=== PATIENT | male | born 1960 | race Caucasian/White ===

== ENCOUNTER 2016-06-29 11:18 | Emergency (ER) | payer SELFPAY ==
[2016-06-29 12:03] LABS: BASO % 0.3 % (0-6); EOS % 2.6 % (0-6); GRAN % 51.8 % (47-80); HEMATOCRIT 41.3 % (42.0-52.0); HEMOGLOBIN 13.7 gm/dl (14.0-18.0); LYMPH % 38.9 % (16-45); MEAN CELL VOLUME 96.3 fl (81-97); MEAN CORPUSCULAR HEMOGLOBIN 31.9 pg (27-33); MEAN CORPUSCULAR HGB CONC 33.2 g/dl (32-36); MEAN PLATELET VOLUME 9.6 fl (7.4-10.4); MONO % 6.4 % (0-9); PLATELET COUNT 302 K/uL (130-400); RED BLOOD COUNT 4.29 M/uL (4.40-5.70); RED CELL DISTRIBUTION WIDTH 12.3 % (11.5-14.5); WHITE BLOOD COUNT W/O DIFF 9.1 K/uL (4.2-12.2)
[2016-06-29 12:15] LABS: ALB/GLOB RATIO 1.4 (1.1-1.8); ALBUMIN 4.7 gm/dL (3.5-5.0); ALKALINE PHOSPHATASE 91 U/L (38-126); ALT/SGPT 44 U/L (21-72); ANION GAP 14.2 (7-16); AST/SGOT 36 U/L (17-59); BILIRUBIN,TOTAL 0.35 mg/dL (0.2-1.3); BLOOD UREA NITROGEN 15 mg/dL (9-20); CARBON DIOXIDE 26.8 mmol/L (22-30); CREATININE 0.7 mg/dL (0.66-1.25); EST GLOMERULAR FILTRATION RATE > 60 ml/min; GLUCOSE,RANDOM 105 mg/dL (70-110)
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
== END 2016-06-29 13:49 | disposition home or self-care (01) ==
LOC: ER 11:18
DX: S16.1XXA Strain of muscle, fascia and tendon at neck level, initial encounter (principal); S32.019A Unspecified fracture of first lumbar vertebra, initial encounter for closed fracture; S09.90XA Unspecified injury of head, initial encounter; V43.54XA Car driver injured in collision with van in traffic accident, initial encounter; Y92.410 Unspecified street and highway as the place of occurrence of the external cause
CPT/HCPCS: 70450; 71020; 72100; 72125; 80053; 85025; 99283; 99284

== ENCOUNTER 2018-01-25 08:32 | Day surgery (SDC) | payer MEDICAID ==
[2018-01-25] MEDS ORDERED: LIDOCAINE 2% MDV (20MG/ML) 20ML VIAL IV ONE (08:33)
[2018-01-25] MEDS ORDERED: PROPOFOL 10 MG/ML VIAL IV ONE (08:33)
[2018-01-25] MEDS ORDERED: MIDAZOLAM HCL 2MG/2ML VIAL IV ONE (08:33)
--- NOTE | 2018-01-27 17:40 | Operative Note ---
DATE OF SURGERY: 01/25/2018 OPERATION: COLONOSCOPY to the cecum with cold snare polypectomy x3. INDICATION: Prior colonoscopy completed 3 years ago with removal of at least 3 adenomatous polyps by my associate. The patient returns at this time for surveillance examination. He denies current GI issues. ANESTHESIA: Intravenous sedation was administered by the department of anesthesiology and included Diprivan titrated to effect. PROCEDURE: Following informed consent from this alert individual including a discussion of the risks and benefits of the procedure and an opportunity for the patient to ask questions, the patient was in the left lateral decubitus position. A digital rectal examination was performed. No abnormalities were noted. Following this, the Olympus [id number] video colonoscope was inserted into the rectum without resistance. The rectal mucosa had a normal appearance with normal folds and distensibility. The colonoscope was advanced up through the bowel to the level of the cecum without much difficulty. Throughout the bowel the mucosa appeared normal, the folds were normal, and the bowel was fairly well distensible. The cecum was defined by noting the appendiceal orifice and ileocecal valve. From the base of the cecum, the colonoscope was then withdrawn. The colon preparation was good. There were 2 polyps noted in the transverse colon measuring 5 and 6 mm in size. Each was removed with cold snare polypectomy and suctioned through the colonoscope into a collection trap. There was a 3rd polyp measuring 4 mm in size noted in the descending colon likewise removed with cold snare polypectomy and recovered in a specimen trap. There were a few small diverticula noted in the sigmoid region. Retroflexion in the rectum did reveal small internal hemorrhoids. No other changes were noted. The endoscope was straightened and removed. The patient tolerated the procedure well and was returned to the recovery area in stable condition. IMPRESSION: 1. Three colon polyps removed as described above with 2 from the transverse colon and 1 from the descending colon, all removed with cold snare polypectomy. 2. Mild diverticulosis in the sigmoid colon. 3. Small internal hemorrhoids. RECOMMENDATIONS: Further recommendations will be forthcoming pending results of pathology obtained today. The patient will be following up with nurse practitioner Mala Mitchell as well. As always, thank you for allowing me to participate in the care of your patient. CC: OK Lopes
== END 2018-01-25 11:40 | disposition home or self-care (01) ==
LOC: HOP 08:32
PROVIDERS: ATTEND Internal Medicine Gastroenterology
DX: Z12.11 Encounter for screening for malignant neoplasm of colon (principal); Z86.010 Personal history of colon polyps; D12.4 Benign neoplasm of descending colon; D12.3 Benign neoplasm of transverse colon; K57.30 Diverticulosis of large intestine without perforation or abscess without bleeding; K64.8 Other hemorrhoids; Z79.899 Other long term (current) drug therapy; Z51.81 Encounter for therapeutic drug level monitoring; Z00.00 Encounter for general adult medical examination without abnormal findings; F32.9 Major depressive disorder, single episode, unspecified
CPT/HCPCS: 80053; 80061; 83036; 84443; 85025

== ENCOUNTER 2018-10-20 12:24 | Emergency (ER) | payer MEDICAID ==
--- NOTE | 2018-10-20 16:03 | Emergency Department Record ---
History of Present Illness - General Chief complaint: Extremity Problem Stated complaint: SMASHED FINGER Time Seen by Provider: 10/20/18 15:58 Source: Patient, RN notes reviewed Mode of Arrival: Ambulatory - History of Present Illness Initial comments: slammed the left middle finger in a door with his dog closing the door. nail partailly avulsed. tetnus shot 3 years ago. Onset/Timin -: Hour(s) Location: Left, Hand History of Same: No Severity scale (1-10): 8 Quality: Sharp Consistency: Constant Worsens with: Nothing Associated Symptoms: Denies other symptoms - Related Data Previous Rx's Medication Instructions Recorded Hydrocodone/Acetaminophen [[place] 1 tab PO Q6H PRN #112 tablet 11/14/14 10mg/325mg] Gabapentin [Neurontin] 600 mg PO TID #90 tab 01/10/15 Cephalexin [Keflex] 500 mg PO QID #40 cap 10/20/18 Allergies Allergy/AdvReac Type Severity Reaction Status Date / Time No Known Allergies Allergy PT UNSURE Unverified 10/20/18 15:00 OF REACTION Travel Screening - Travel/Exposure Within Last 30 Days Have you traveled within the last 30 days?: No - Travel/Exposure Within Last Year Have you traveled outside the [place] in the last year?: No - Additonal Travel Details Have you been exposed to anyone with a communicable illness?: No - Travel Symptoms Symptom Screening: None Review of Systems Reviewed: No additional complaints except as noted below Constitutional: Reports: As per HPI. Denies: Chills, Fever, Malaise, Night sweats, Weakness, Weight change Eyes: Reports: As per HPI. Denies: Eye discharge, Eye pain, Photophobia, Vision change ENT: Reports: As per HPI. Denies: Congestion, Dental pain, Ear pain, Epistaxis, Hearing loss, Throat pain Respiratory: Reports: As per HPI. Denies: Cough, Dyspnea, Hemoptysis, Stridor, Wheezes Cardiovascular: Reports: As per HPI. Denies: Arrhythmia, Chest pain, Dyspnea on exertion, Edema, Murmurs, Orthopnea, Palpitations, Paroxysmal nocturnal dyspnea, Rheumatic Fever, Syncope Endocrine: Reports: As per HPI. Denies: Fatigue, Heat or cold intolerance, Polydipsia, Polyuria Gastrointestinal: Reports: As per HPI. Denies: Abdominal pain, Constipation, Diarrhea, Hematemesis, Hematochezia, Melena, Nausea, Vomiting Genitourinary: Reports: As per HPI. Denies: Dysuria, Frequency, Hematuria, Incontinence, Retention, Testicular pain, Testicular mass, Urgency Musculoskeletal: Reports: As per HPI. Denies: Arthralgia, Back pain, Gout, Joint swelling, Myalgia, Neck pain Skin: Reports: As per HPI. Denies: Bruising, Change in color, Change in hair/nails, Lesions, Pruritus, Rash Neurological: Reports: As per HPI. Denies: Abnormal gait, Confusion, Headache, Numbness, Paresthesias, Seizure, Tingling, Tremors, Vertigo, Weakness Psychiatric: Reports: As per HPI. Denies: Anxiety, Auditory hallucinations, Depression, Homicidal thoughts, Suicidal thoughts, Visual hallucinations Hematological/Lymphatic: Reports: As per HPI. Denies: Anemia, Blood Clots, Easy bleeding, Easy bruising, Swollen glands Past Medical History - SOCIAL HISTORY Smoking Status: Current every day smoker Alcohol Use: None Drug Use: Heavy Drug Use Detail:: Marijuana - RESPIRATORY Hx Respiratory Disorders: No - CARDIOVASCULAR Hx Cardio Disorders: Yes Comment:: slow mobility r/t chronic pain - NEURO Hx Neuro Disorders: No Hx Headaches: Yes Hx Neuropathy: Yes (upper ext) - GI Hx GI Disorders: Yes Hx Abdominal Pain: Yes Hx Reflux: Yes Hx Nausea/Vomiting: Yes - Hx Genitourinary Disorders: No - ENDOCRINE Hx Endocrine Disorders: No - MUSCULOSKELETAL Hx Musculoskeletal Disorders: Yes Hx Arthritis: Yes Hx Back Injury: Yes (work related injury) - PSYCH Hx Psych Problems: Yes Hx Anxiety: Yes Hx Depression: Yes - HEMATOLOGY/ONCOLOGY Hx Hematology/Oncology Disorders: Yes Hx Cancer: Yes (bottom lip) Hx Chemotherapy: No Hx Radiation Therapy: No Family Medical History Any Significant Family History?: Yes Hx Cancer: Father, Mother, Grandparents *Cancer Comment: lung, breast Hx Diabetes: Mother Hx Heart Disease: Father, Mother, Grandparents Hx HTN: Father, Mother, Brother/Sister, Grandparents Hx Resp Disorders: Mother Hx Stroke: Mother Physical Exam - General General Appearance: Alert, Oriented x3, Cooperative, No acute distress - Head Head exam: Normal inspection - Eye Eye exam: Normal appearance, PERRL Pupils: Normal accommodation - ENT ENT exam: Normal exam, Mucous membranes moist, Normal external ear exam, Normal orophraynx, TM's normal bilaterally Ear exam: Normal external inspection. negative: External canal tenderness Nasal Exam: Normal inspection. negative: Discharge, Sinus tenderness Mouth exam: Normal external inspection, Tongue normal Teeth exam: Normal inspection. negative: Dental caries Throat exam: Normal inspection. negative: Tonsillar erythema, Tonsillar exudate - Neck Neck exam: Normal inspection, Full ROM. negative: Tenderness - Respiratory Respiratory exam: Normal lung sounds bilaterally. negative: Respiratory distress - Cardiovascular Cardiovascular Exam: Regular rate, Normal rhythm, Normal heart sounds - GI/Abdominal GI/Abdominal exam: Soft, Normal bowel sounds. negative: Tenderness - Rectal Rectal exam: Deferred - exam: Deferred - Extremities Extremities exam: Normal inspection, Full ROM, Normal capillary refill. negative: Tenderness - Back Back exam: Reports: Normal inspection, Full ROM. Denies: Muscle spasm, Rash noted, Tenderness - Neurological Neurological exam: Alert, Normal gait, Oriented X3, Reflexes normal - Psychiatric Psychiatric exam: Normal affect, Normal mood - Skin Skin exam: Dry, Intact, Normal color, Warm Course Vital Signs 10/20/18 15:02 Temperature 97.8 F Pulse Rate 57 L Respiratory 20 Rate Blood Pressure 162/90 Pulse Ox 99 - Reevaluation(s) Reevaluation #1: cleaned wound and 1 % lidocaine digital block removed rest of nail and nailbed laceration 3 cm repaired with three 5.0 sutures. henry fracture 10/20/18 16:03 10/20/18 16:49 Medical Decision Making - Data Complexity MDM Data: X-Ray Ordered and/or Reviewed ([facility], [place] fracture) Disposition Clinical Impression: Closed fracture of tuft of distal phalanx of finger Nailbed laceration, finger Qualifiers: Encounter type: initial encounter Qualified Code(s): S61.319A - Laceration without foreign body of unspecified finger with damage to nail, initial encounter Disposition: Home, Self-Care Condition: (1) Good Instructions: Laceration (ED), Finger Fracture (ED) Additional Instructions: follow up with dR Reyna for a wound check in 2-5 days and sutures out in 9- 12 days and further care of the henry fracture. Prescriptions: Cephalexin [Keflex] 500 mg PO QID #40 cap Forms: Patient Portal Access Time of Disposition: 17:01 Quality - Quality Measures Quality Measures: N/A - Blood Pressure Screening Does Patient Have Any of the Following: No Blood Pressure Classification: Hypertensive Reading Systolic Measurement: 162 Diastolic Measurement: 90 Screening for High Blood Pressure: < Pre-Hypertensive BP, F/U Documented > [[id number]] Pre-Hypertensive Follow-up Interventions: Referral to alternative/primary care provider.
--- NOTE | 2018-10-22 08:31 | RADIOLOGY REPORT ---
EXAM: LEFT THIRD DIGIT HISTORY: INJURY TO THIRD DIGIT. TECHNIQUE: Three views of the left third digit were obtained. Comparison: None. Encounter: Initial. FINDINGS: There is a transverse fracture of the tuft of the third distal phalanx with approximately 1 mm of distraction of the fracture fragments. There is surrounding soft tissue swelling as well as lucency at the level of the nail bed extending to the fracture site. Open fracture is considered. No other fracture is seen nor is there dislocation. Mild marginal spurring of the visualized interphalangeal joints suggested. IMPRESSION: TRANSVERSE FRACTURE OF THE TUFT OF THE THIRD DISTAL PHALANX WITH MINOR DISTRACTION OF THE FRACTURE FRAGMENTS. THERE IS ASSOCIATED SOFT TISSUE SWELLING AND SOFT TISSUE LUCENCY WITH OPEN FRACTURE NOT EXCLUDED. JOB NUMBER: [id number] [facility]
== END 2018-10-20 17:15 | disposition home or self-care (01) ==
LOC: ER 12:24
DX: S61.313A Laceration without foreign body of left middle finger with damage to nail, initial encounter (principal); S62.663A Nondisplaced fracture of distal phalanx of left middle finger, initial encounter for closed fracture; W22.8XXA Striking against or struck by other objects, initial encounter; F17.210 Nicotine dependence, cigarettes, uncomplicated
CPT/HCPCS: 11760; 73140; 99283; 99284

== ENCOUNTER 2018-10-31 10:56 | Emergency (ER) | payer MEDICAID ==
--- NOTE | 2018-10-31 11:13 | Emergency Department Record ---
History of Present Illness - General Chief Complaint: Wound, check Stated Complaint: REMOVE STITCHES Time Seen by Provider: 10/31/18 10:56 Source: Patient Mode of arrival: Ambulatory Limitations: No limitations - History of Present Illness Complaint: Suture/staple removal -: Days(s) Returns Today for: Staple/stitch removal Symptoms Since Prior Visit: No new symptoms Associated Symptoms: None - Related Data Previous Rx's Medication Instructions Recorded Hydrocodone/Acetaminophen [[place] 1 tab PO Q6H PRN #112 tablet 11/14/14 10mg/325mg] Gabapentin [Neurontin] 600 mg PO TID #90 tab 01/10/15 Cephalexin [Keflex] 500 mg PO QID #40 cap 10/20/18 Allergies Allergy/AdvReac Type Severity Reaction Status Date / Time No Known Allergies Allergy PT UNSURE Unverified 10/31/18 11:11 OF REACTION Travel Screening - Travel/Exposure Within Last 30 Days Have you traveled within the last 30 days?: No - Travel/Exposure Within Last Year Have you traveled outside the [place] in the last year?: No - Additonal Travel Details Have you been exposed to anyone with a communicable illness?: No - Travel Symptoms Symptom Screening: None Past Medical History - SOCIAL HISTORY Smoking Status: Current every day smoker Alcohol Use: None Drug Use: Occasional, Heavy Drug Use Detail:: Marijuana - RESPIRATORY Hx Respiratory Disorders: No - CARDIOVASCULAR Hx Cardio Disorders: Yes Comment:: slow mobility r/t chronic pain - NEURO Hx Neuro Disorders: No Hx Headaches: Yes Hx Neuropathy: Yes (upper ext) - GI Hx GI Disorders: Yes Hx Abdominal Pain: Yes Hx Reflux: Yes Hx Nausea/Vomiting: Yes - Hx Genitourinary Disorders: No - ENDOCRINE Hx Endocrine Disorders: No - MUSCULOSKELETAL Hx Musculoskeletal Disorders: Yes Hx Arthritis: Yes Hx Back Injury: Yes (work related injury) - PSYCH Hx Psych Problems: Yes Hx Anxiety: Yes Hx Depression: Yes - HEMATOLOGY/ONCOLOGY Hx Hematology/Oncology Disorders: Yes Hx Cancer: Yes (bottom lip) Hx Chemotherapy: No Hx Radiation Therapy: No Family Medical History Any Significant Family History?: No Hx Cancer: Father, Mother, Grandparents *Cancer Comment: lung, breast Hx Diabetes: Mother Hx Heart Disease: Father, Mother, Grandparents Hx HTN: Father, Mother, Brother/Sister, Grandparents Hx Resp Disorders: Mother Hx Stroke: Mother Physical Exam - General General Appearance: Alert, Cooperative, No acute distress - Extremities Extremities exam: negative: Normal inspection (The nailbed lac is healing well. Only 2 vicryl sutures are visualized and were removed. There were no complications.) Course Vital Signs 10/31/18 11:07 Temperature 98 F Pulse Rate 67 Respiratory 16 Rate Blood Pressure 153/87 Pulse Ox 98 Disposition Disposition: Discharge Clinical Impression: Encounter for removal of sutures Disposition: Home, Self-Care Condition: (2) Stable Instructions: Stitches Removal (ED) Additional Instructions: Keep antibiotic ointment on with a bandaid during the day. Return to the ER for any problems. Forms: Patient Portal Access Time of Disposition: 11:13 Quality - Quality Measures Quality Measures: N/A - Blood Pressure Screening View Details: Yes Does Patient Have Any of the Following: No Blood Pressure Classification: Pre-Hypertensive BP Reading Systolic Measurement: 153 Diastolic Measurement: 87 Screening for High Blood Pressure: < Pre-Hypertensive BP, F/U Documented > [G8950] Pre-Hypertensive Follow-up Interventions: Referral to alternative/primary care provider.
== END 2018-10-31 11:21 | disposition home or self-care (01) ==
LOC: ER 10:56
DX: Z48.02 Encounter for removal of sutures (principal)

== ENCOUNTER 2019-04-18 11:18 | Emergency (ER) | payer MEDICAID ==
[2019-04-18] MEDS ORDERED: Diph,Pert(Acell),Tet Vac 0.5 ML SYR IM ONE (11:29)
[2019-04-18] MEDS ORDERED: CEFAZOLIN 2 Gram 2 GM/50 ML BAG IVPB ONE (11:29)
[2019-04-18] MEDS ORDERED: ONDANSETRON HCL IV 4 MG/2 ML VIAL IVP ONE (11:30)
[2019-04-18] MEDS ORDERED: MORPHINE SULFATE 5 MG/ML VIAL IVP ONE (11:30)
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
--- NOTE | 2019-04-18 12:19 | RADIOLOGY REPORT ---
EXAMINATION: Left Hand, Minimum Three Views EXAM DATE: 04/18/2019 11:52 AM TECHNIQUE: PA, lateral, and oblique INDICATION: trauma COMPARISON: None ENCOUNTER: Initial FINDINGS: 3 views of the left hand show a severely displaced fracture of the mid to distal aspect of the third proximal phalanx, with approximately 5 mm dorsal displacement of the distal fracture fragment. In add ition, there is a comminuted and mildly displaced fracture of the proximal, dorsal aspect of the thir d middle phalanx with associated extensive soft tissue injury. The third distal phalanx appears intac t. No additional finger fractures identified but there are tiny radiopaque foreign bodies within the soft tissues of the third through fifth fingers proximally. IMPRESSION: Severe acute fractures of the left third proximal and middle phalanges, as above. Dictated by: Tono Rubin MD on 04/18/2019 12:12 PM. .
== END 2019-04-18 12:25 | disposition short-term general hospital (02) ==
LOC: ER 11:18
DX: S62.613B Displaced fracture of proximal phalanx of left middle finger, initial encounter for open fracture (principal); S62.623B Displaced fracture of middle phalanx of left middle finger, initial encounter for open fracture; W24.0XXA Contact with lifting devices, not elsewhere classified, initial encounter; F17.210 Nicotine dependence, cigarettes, uncomplicated
CPT/HCPCS: 26770; 90715; 96365; 96372; 96375; 99285; J2405